=== PATIENT | male | born 1990 | race African-American/Black ===

== ENCOUNTER 2017-12-02 15:31 | Emergency (ER) | payer OTHER ==
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
[2017-12-02] MEDS ORDERED: HYDROCODONE/APAP 7.5/325 MG TAB ONE (17:21)
== END 2017-12-02 19:28 | disposition home or self-care (01) ==
LOC: ER 15:31
DX: H11.32 Conjunctival hemorrhage, left eye (principal); S02.2XXA Fracture of nasal bones, initial encounter for closed fracture; S00.83XA Contusion of other part of head, initial encounter; Y09 Assault by unspecified means; Y93.9 Activity, unspecified; Y92.149 Unspecified place in prison as the place of occurrence of the external cause
CPT/HCPCS: 70450; 70486; 76377; 99284